=== PATIENT | female | born 1995 | race Caucasian/White ===

== ENCOUNTER 2018-05-18 09:34 | Outpatient (REF) | payer MEDICAID, SELFPAY ==
[2018-05-18 13:27] LABS: T4 8.6 ug/dL (4.5-12.5)
[2018-05-18 21:47] LABS: T3, Total 151 ng/dl (97-169)
[2018-05-19 12:07] LABS: Thyroglobulin Antibody 24 U/mL (<61); Thyroperoxidase Antibody <28 U/mL (<61)
== END 2018-05-18 09:54 ==
LOC: NCHCN 09:34
PROVIDERS: Visit Provider Nurse Practitioner Family
DX: R60.9 Edema, unspecified (principal)
CPT/HCPCS: 86376; 84436; 84443; 84480

== ENCOUNTER 2018-06-11 01:08 | Outpatient (CLI) | payer MEDICAID, SELFPAY ==
--- NOTE | 2018-06-11 11:20 | DI.US_ITS ---
SYMPTOMS/DIAGNOSIS: SOFT TISSUE SWELLING, R60.9 SOFT TISSUE NECK ULTRASOUND: Sonographic evaluation of the neck was performed. There are bilateral hypoechoic lymph nodes in the neck. They have a benign appearance sonographically. The largest is on the left and measures 1.6 x 0.4 x 1.3 cm. No suspicious cervical masses are seen. IMPRESSION: Benign appearing lymph nodes seen in the soft tissues of the neck. THYROID ULTRASOUND: Routine examination was performed. The right lobe measures 5.9 x 1.9 x 1.6 cm. The left lobe measures 4.9 x 1.3 x 1.6 cm. There is normal and symmetric blood flow to the thyroid gland. In the inferior aspect of the right lobe of the thyroid gland there are three complex cystic lesions. The largest measures 0.6 x 0.3 x 0.3 cm. They are all avascular. There does appear to an associated calcification with each of the lesions. No other cystic or solid lesions are seen in the thyroid glands. IMPRESSION: Multiple small complex cystic lesions in the inferior pole of the right lobe. The largest measuring .6 cm. No suspicious characteristics are seen. Follow up as clinically appropriate.
== END 2018-06-11 01:28 ==
PROVIDERS: PCP Nurse Practitioner Family; Visit Provider Nurse Practitioner Family
DX: R22.1 Localized swelling, mass and lump, neck (principal); M79.89 Other specified soft tissue disorders; R59.0 Localized enlarged lymph nodes; E04.2 Nontoxic multinodular goiter
CPT/HCPCS: 76536

== ENCOUNTER 2018-07-08 15:16 | Outpatient (CLI) | payer MEDICAID, SELFPAY ==
[2018-07-12 13:38] LABS: Chlamydia Result Negative; GC Result Negative; Specimen Description URINE
== END 2018-07-08 15:36 ==
PROVIDERS: PCP Nurse Practitioner Family; Visit Provider Nurse Practitioner Women's Health
DX: Z11.3 Encounter for screening for infections with a predominantly sexual mode of transmission (principal)
CPT/HCPCS: 87491; 87591

== ENCOUNTER 2024-11-06 19:29 | Emergency (ER) | payer MEDICAID, SELFPAY ==
[2024-11-06 19:33] VITALS: BP 137/64; PULSE 87; RESP 16; TEMP 36.2; O2SAT 99
--- NOTE | 2024-11-06 20:24 | ED.GENADUL_ITS ---
Discharge Plan Disposition Patient Disposition: Home Condition: Stable Discharge Details Clinical Impression: Laceration of right wrist Primary Care Provider: None,None ED Provider: Raiaz Galaviz Home Meds and New Rx's Prescriptions: No Action Nexplanon 68 mg implant 1 implant SBD ONCE Qty: 1 0RF Discharge Instructions Instructions: Laceration Repair With Stitches ED Additional Instructions: You were seen in the emergency department today for evaluation of a laceration. In our department you had a full physical examination performed and the laceration did not have any foreign bodies or evidence of damage to your tendons or nerves. You had stitches placed, these need to be removed in 7 to 10 days. You need to keep the area clean and dry, it is fine for soap and hot water to run over the area but no soaking or scrubbing. Pat dry and use an [id number] topical antibiotic ointment at least 1-2 times per day, or anytime the area gets soiled. Use Tylenol and ibuprofen for management of any pain. I have placed a referral for you to establish with a primary care provider, and you should call them if you experience any complications such as redness, pus, fevers, etc. Thank you for allowing us to be part of your care. HPI General Mode of arrival: ambulatory . Date/Time Provider Initiated Documentation: 11/06/24 19:40 . Limitations to Documentation: no limitations . Information obtained by: patient, family and old records reviewed . HPI Narrative: HPI: This is a 29-year-old female patient without significant past medical history who is presenting for evaluation of a laceration. The patient reports that she was playing with her dog, and hit her wrist against a window, which broke and sustained a laceration to the flexor aspect of her right wrist. She is right-hand dominant, but has not noted any sensory changes, weakness, or inability to move her wrist or fingers. This is an isolated injury and the patient was in her normal state of health prior to arrival at the emergency department. The injury happened approximately 20 minutes ago, states that she did not take any medications prior to arrival. Last tetanus shot 3 years ago Exam: Gen: Awake and alert, in no apparent distress HEENT: Non-icteric sclera Neck: Supple Lungs: No apparent respiratory distress, normal respiratory effort. CV: Appears well perfused Abdomen: Non-distended MSK: Moves 4 extremities without apparent limitation in ROM. The patient has full resisted strength in flexion and extension at all joints of the hand and fingers, preserved sensation and brisk capillary refill throughout Skin: Visualized skin without rashes, cyanosis. The patient has an approximately 5 cm laceration to the flexor aspect of the right wrist just proximal to the wrist, hemostatic. There is visible fat but no violation of the underlying fascia, no visible foreign bodies. There is a small jagged flap aspect at the very end of the laceration on the thumb side Neuro: Normal Gait, no obvious focal deficits or facial asymmetry. Speaks in full, clear sentences. Psych: Appropriate for situation. MDM: This is a 29-year-old female patient presenting for evaluation of a laceration. Differential includes but is not limited to laceration, certainly considered foreign body, mechanism less concerning for fracture, no evidence for tendon damage, muscular or neurovascular injury. ED Course: The wound was anesthetized, thoroughly irrigated and cleaned, deep structures noted to be intact and I did not visualize any foreign bodies that require removal. Given this reassuring evaluation and the relative superficial nature of this laceration I do not see indication to proceed with x-ray at this time. The wound was repaired as noted below with sutures. I provided the patient with wound care instructions, and at this time, the patient has had a full medical evaluation and is safe for discharge to home. They are hemodynamically stable, ambulatory, and tolerating PO. They are understanding of the follow-up plan and return precautions. They left our facility without incident. Raiza Galaviz MD Related Data Home Medications ?Medication ?Instructions ?Recorded ?Confirmed etonogestrel 68 mg subdermal 1 implant subdermal ONCE #1 ea 07/08/18 11/06/24 implant (Nexplanon) Previous Rx's ?Medication ?Instructions ?Recorded etonogestrel 68 mg subdermal 1 implant subdermal ONCE #1 ea 07/08/18 implant (Nexplanon) Allergies Allergy/AdvReac Type Severity Reaction Status Date / Time No Known Drug Allergies Allergy no Verified 11/06/24 19:42 allergies General Stated Complaint: Laceration TOMÁS: 3 Course Vital Signs Vital signs: Vital Signs Temperature 36.2 C L 11/06/24 19:33 Pulse 87 11/06/24 19:33 Respiratory Rate 16 11/06/24 19:33 Blood Pressure 137/64 11/06/24 19:33 Pulse Oximetry 99 11/06/24 19:33 Temperature 36.2 C L 11/06/24 19:33 Temperature Source Temporal Artery Scan 11/06/24 19:33 Pulse 87 11/06/24 19:33 Respiratory Rate 16 11/06/24 19:33 Blood Pressure 137/64 11/06/24 19:33 Pulse Oximetry 99 11/06/24 19:33 Oxygen Delivery Method Room Air 11/06/24 19:33 Oxygen Flow Rate 0 11/06/24 19:33 Pain Level 3 11/06/24 19:33 Procedure Laceration Laceration 1: Date of Procedure: 11/06/24 Time of procedure: 20:25 Provider that performed the procedure: Raiza Galaviz Standard Time Out Performed: No Patient Consented: Verbally Site: upper extremity Side (If applicable): right Description: linear Depth: simple, single layer Local anesthetic: Lidocaine 2% and with Epi Amount of anesthesia used (mL): 5 Pre-repair:: wound explored, irrigated extensively and deep structures intact Skin layer closed with: nylon Suture size: 4-0 Number of sutures:: 8 Technique: simple, interrupted Complications: None Medical Decision Making Quality:SDOH Health Related Social Needs: No Data to Display PFSH All Active Problems (Updated 11/06/24 @ 20:25 by Raiza Galaviz MD) Laceration of right wrist (Acute) Contraception (Acute 03/30/15) Nexplanon 07/08/2018 Social History Smoking risk assessment performed?: No Alcohol Intake: current Alcohol Intake frequency: 3 or more drinks per day Alcohol type: beer Drug use: Never Substance use type: does not use Female Reproductive History Menstrual control method: implanted (Implanted by Boyd Morse NP DQA=[id number] EXP=11/2020) PAWSS Have you Been Recently Intoxicated or Drunk Within the Last 30 days?: No Have you Ever Experienced Previous Episodes of Alcohol Withdrawal?: No Have you ever Experienced Withdrawal Seizures?: No Have you ever Experienced Delirium Tremens(DT)s?: No Have you ever undergone Alcohol Rehabilitation Treatment (i.e, inpt ot outpatient treatment programs)?: No Have you ever Experienced Blackouts?: No Have you ever Combined Alcohol with other Downers within the last 90 days?: No Have you ever Combined Alcohol with any other Substance of Abuse during the last 90 days?: No Positive Blood Alcohol level on Presentation? [PCS.BAL]: No Evidence of Increased Autonomic Activity (i.e. HR>120, tremor, sweating, agitation, nausea)?: No Result: 0
[2024-11-06] MEDS: Lidocaine 2% Pres-Free W/EPI 1/200,000 20 ML VIAL (20:27)
== END 2024-11-06 20:27 | disposition home or self-care (01) ==
LOC: ER 20:36
PROVIDERS: Emergency Provider Emergency Medicine
DX: S61.511A Laceration without foreign body of right wrist, initial encounter (principal); W18.02XA Striking against glass with subsequent fall, initial encounter; Y93.K9 Activity, other involving animal care; Y92.018 Other place in single-family (private) house as the place of occurrence of the external cause
CPT/HCPCS: 12002; 99283; J2004